=== PATIENT | female | born 1945 | race Caucasian/White ===

== ENCOUNTER 2018-08-31 14:27 | Outpatient (CLI) | payer MEDICARE ==
--- NOTE | 2018-08-31 16:17 | RAD ---
FOUR VIEWS OF THE LUMBAR SPINE 08/31/18 COMPARISON: None. HISTORY: Pain, neurogenic claudication, radiculopathy. FINDINGS: Clips in right upper quadrant suggests prior cholecystectomy. Lateral neutral imaging demonstrates no significant anterolisthesis or retrolisthesis. There is significant lower lumbar spine facet hypertr ophy at L3-4, L4-5 and L5-S1. There is disc space narrowing with degenerative end plate change and an terior osteophyte formation at the L4-5 and L5-S1 level. Upon flexion, there is anterolisthesis of L4 on L5 measuring approximately 6 mm. This is reduced with extension. IMPRESSION: Multilevel lower lumbar spine degenerative change with grade I anterolisthesis at L4-5 with flexion. POS: [facility]
--- NOTE | 2018-08-31 16:30 | MRI ---
MRI OF THE LUMBAR SPINE: 08/31/18 COMPARISON: None. HISTORY: Lumbar stenosis with neurogenic claudication, left hip and left leg pain/radiculopathy. TECHNIQUE: Multiplanar and multisequence MR imaging of the lumbar spine obtained without contrast. FINDINGS: The sagittal STIR imaging demonstrates no focal area of osseous marrow edema. There is no significant lumbar spine anterolisthesis of retrolisthesis. On the basis of five lumbar type vertebral bodies, the conus medullaris terminates at T12-L1. T12-L1: Disc desiccation. Mild bilateral facet hypertrophy. No significant central canal or neural fo raminal stenosis. L1-2: There is disc space narrowing and disc desiccation with bilateral facet hypertrophy and anterio r osteophyte formation. No significant central canal or neural foraminal stenosis. L2-3: Mild bilateral facet hypertrophy with no significant central canal or neural foraminal stenosis . L3-4: There is mild disc space narrowing and disc desiccation with mild disc bulge and a small super imposed left foraminal disc protrusion. Bilateral facet hypertrophy. Mild left neural foraminal steno sis. No significant central canal or right neural foraminal stenosis. L4-5: Disc space narrowing and disc desiccation with prominent bilateral facet hypertrophy and hypert rophy of the ligamentum flavum, especially on the right. There is mild left neural foraminal stenosis and severe right neural foraminal stenosis with prominent right lateral recess stenosis. L5-S1: Bilateral facet hypertrophy and hypertrophy of the ligamentum flavum, right greater than left. Severe right and moderate left neural foraminal stenosis. No significant central canal stenosis. Micki ged retroperitoneal structures demonstrate no acute findings. IMPRESSION: Multilevel degenerative change within the lumbar spine, most prominent on the right at L4-5 and L5-S1 . POS: [facility]
== END 2018-08-31 14:28 | disposition home or self-care (01) ==
LOC: BICMRI 14:27
PROVIDERS: ATTEND Nurse Practitioner Family
DX: M48.062 Spinal stenosis, lumbar region with neurogenic claudication (principal); M47.816 Spondylosis without myelopathy or radiculopathy, lumbar region; M43.16 Spondylolisthesis, lumbar region; M47.817 Spondylosis without myelopathy or radiculopathy, lumbosacral region
CPT/HCPCS: 72110; 72148

== ENCOUNTER 2018-09-24 08:35 | Outpatient (CLI) | payer MEDICARE ==
--- NOTE | 2018-09-24 14:01 | BD ---
DEXA BONE DENSITY EXAM: HISTORY: A 72-year-old postmenopausal female for screening. FINDINGS: Lumbar Spine: BMD (g/cm2) L1 0.800 T-Score: -1.7 L2 1.047 T-Score: 0.2 L3 0.954 T-Score: -1.2 L4 1.033 T-Score: -0.3 L1-L4 0.962 T-Score: -0.8 Femoral Neck: 0.737 T-Score: -1.0 Total Femur: 0.918 T-Score: -1.2 Impression: Normal bone mineral density. POS: [facility]
--- NOTE | 2018-10-06 15:30 | MMO ---
Bilateral MAMMO Bilat Screen [facility]. CLINICAL HISTORY: Patient is 72 years old and is seen for screening. The patient has the following family history of breast cancer: maternal grandmother. The patient has no personal history of cancer. The patient has a history of right Excisional Biopsy in 1986 - fibroadenoma. VIEWS: The views performed were: bilateral craniocaudal with tomosynthesis and bilateral mediolateral oblique with tomosynthesis. FILMS COMPARED: The present examination has been compared to prior imaging studies performed at [facility] on 10/19/2012, 05/10/2015 and 09/15/2017. MAMMOGRAM FINDINGS: There are scattered fibroglandular densities. There are stable calcifications seen in both breasts. There are no suspicious masses, suspicious calcifications, or new areas of architectural distortion. IMPRESSION: THERE IS NO MAMMOGRAPHIC EVIDENCE OF MALIGNANCY. A ROUTINE FOLLOW-UP MAMMOGRAM IN 1 YEAR IS RECOMMENDED. THE RESULTS OF THIS EXAM WERE SENT TO THE PATIENT. ACR BI-RADS Category 2 - Benign finding MAMMOGRAPHY NOTE: 1. A negative mammogram report should not delay a biopsy if a dominant of clinically suspicious mass is present. 2. Approximately 10% to 15% of breast cancers are not detected by mammography. 3. Adenosis and dense breasts may obscure an underlying neoplasm. Reported by: ANG BUENROSTRO MD Electonically Signed: [id number]
== END 2018-09-24 08:36 | disposition home or self-care (01) ==
LOC: BICMAMMO 08:35
PROVIDERS: ATTEND Internal Medicine Geriatric Medicine
DX: Z12.31 Encounter for screening mammogram for malignant neoplasm of breast (principal); Z13.820 Encounter for screening for osteoporosis; Z80.3 Family history of malignant neoplasm of breast
CPT/HCPCS: 77063; 77067; 77080

== ENCOUNTER 2019-02-17 15:26 | Outpatient (CLI) | payer MEDICARE ==
--- NOTE | 2019-02-17 15:52 | RAD ---
LEFT HIP TWO VIEWS: 02/17/19 HISTORY: Left hip pain. FINDINGS: There are degenerative changes in the left hip joint. No fracture dislocation or bony destruction see n. IMPRESSION: Left hip osteoarthritis. POS: [facility]
== END 2019-02-17 15:27 | disposition home or self-care (01) ==
LOC: BICRAD 15:26
PROVIDERS: ATTEND Nurse Practitioner Family
DX: M25.552 Pain in left hip (principal); M16.12 Unilateral primary osteoarthritis, left hip

== ENCOUNTER 2019-03-10 12:34 | Outpatient (CLI) | payer MEDICARE ==
--- NOTE | 2019-03-10 14:47 | MRI ---
THORACIC SPINE MRI WITH AND WITHOUT CONTRAST: HISTORY: Thoracic spinal stenosis. Preoperative exam for neural stimulator. Burning sensation involving the le ft hip, x5 years. Patient had a spinal cord lesion biopsied in 1998. FINDINGS: Appropriate T1 marrow signal intensity of the thoracic vertebrae. Thoracic spine vertebral body heigh t is maintained. No fracture. There are type II Modic changes at T7-T8, T8-T9. There is kyphosis centered at the T7-T8 level. No significant STIR hyperintensity to suggest ligamentous injury. Postcontrast images do not demonstrate any abnormal enhancement with regards to the vertebral bodies. Note is made of a moderate hiatal hernia. Visualized mediastinum, lung parenchyma and solid organs ar e grossly unremarkable. T2-T3, T3-T4 demonstrate a small central disc protrusion, without significant central canal stenosis. T6-T7: Moderate central canal stenosis, likely due to disc material. There is a small T2 hyperintense focus along the posterior margin of the disc space. There appears to be associated enhancement. Small focal acute disc herniation cannot be excluded. T7-T8: Central disc herniation with at least mild central canal stenosis. T8-T9 through T12-L1 does not demonstrate any significant posterior disc abnormality. The thoracic cord appears to be atrophic at the T6-T7 and T7-T8 levels. 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 A syringohydromyelia is scattered throughout the thoracic cord. There does not appear to be any abnormal enhancement of the thoracic co rd. IMPRESSION: 1. Degenerative changes of the thoracic spine as detailed above. Possible acute on chronic disc herni ation at T6-T7. 2. 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 No abnormal enhancement. 3. 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
== END 2019-03-10 12:35 | disposition home or self-care (01) ==
LOC: BICMRI 12:34
PROVIDERS: ATTEND Specialist
DX: M48.04 Spinal stenosis, thoracic region (principal); D49.2 Neoplasm of unspecified behavior of bone, soft tissue, and skin; M47.814 Spondylosis without myelopathy or radiculopathy, thoracic region; M83.9 Adult osteomalacia, unspecified
CPT/HCPCS: 72157

== ENCOUNTER 2020-01-19 14:05 | Outpatient (CLI) | payer MEDICARE ==
--- NOTE | 2020-01-19 14:43 | MMO ---
Bilateral MAMMO Bilat Screen [facility]. CLINICAL HISTORY: Patient is 74 years old and is seen for screening. The patient has the following family history of breast cancer: maternal grandmother. The patient has no personal history of cancer. The patient has a history of right Excisional Biopsy in 1986 - fibroadenoma. VIEWS: The views performed were: bilateral craniocaudal with tomosynthesis and bilateral mediolateral oblique with tomosynthesis. FILMS COMPARED: The present examination has been compared to prior imaging studies performed at [facility] on 09/24/2018, and at [facility] on 10/19/2012, 05/10/2015 and 09/15/2017. This study has been interpreted with the assistance of computer-aided detection. MAMMOGRAM FINDINGS: The breasts are heterogeneously dense, which could obscure a lesion on mammography. There are stable benign appearing calcifications seen in both breasts. There are no suspicious masses, suspicious calcifications, or new areas of architectural distortion. IMPRESSION: THERE IS NO MAMMOGRAPHIC EVIDENCE OF MALIGNANCY. A ROUTINE FOLLOW-UP MAMMOGRAM IN 1 YEAR IS RECOMMENDED. THE RESULTS OF THIS EXAM WERE SENT TO THE PATIENT. ACR BI-RADS Category 2 - Benign finding MAMMOGRAPHY NOTE: 1. A negative mammogram report should not delay a biopsy if a dominant of clinically suspicious mass is present. 2. Approximately 10% to 15% of breast cancers are not detected by mammography. 3. Adenosis and dense breasts may obscure an underlying neoplasm. Reported by: TONIE IGLESIAS MD Electonically Signed: [id number]
== END 2020-01-19 14:06 | disposition home or self-care (01) ==
LOC: BICMAMMO 14:05
PROVIDERS: ATTEND Internal Medicine
DX: Z12.31 Encounter for screening mammogram for malignant neoplasm of breast (principal); Z80.3 Family history of malignant neoplasm of breast
CPT/HCPCS: 77063; 77067

== ENCOUNTER 2021-02-05 10:43 | Outpatient (CLI) | payer MEDICARE | END 2021-02-05 10:44 | disposition home or self-care (01) | LOC: BICMAMMO 10:43 | PROVIDERS: ATTEND Internal Medicine | DX: Z12.31 Encounter for screening mammogram for malignant neoplasm of breast (principal); Z80.3 Family history of malignant neoplasm of breast | CPT/HCPCS: 77063; 77067 ==

== ENCOUNTER 2022-02-13 14:04 | Outpatient (CLI) | payer MEDICARE | END 2022-02-13 14:05 | disposition home or self-care (01) | LOC: BICMAMMO 14:04 | PROVIDERS: ATTEND Internal Medicine | DX: Z12.31 Encounter for screening mammogram for malignant neoplasm of breast (principal); Z80.3 Family history of malignant neoplasm of breast | CPT/HCPCS: 77063; 77067 ==